=== PATIENT | male | born 1970 | race Caucasian/White ===

== ENCOUNTER 2016-10-18 10:34 | Emergency (ER) ==
[2016-10-18 12:07] LABS: URINE CULTURE NEEDED? NO; URINE MICRO REVIEW NEEDED? NO; URINE SOURCE CLEAN CATCH
[2016-10-18 12:15] LABS: BILIRUBIN URINE NEGATIVE (NEGATIVE); BLOOD URINE NEGATIVE (NEGATIVE); COLOR YELLOW; GLUCOSE URINE 300 mg/dL (NEGATIVE); LEUKOCYTES URINE NEGATIVE (NEGATIVE); NITRITE URINE NEGATIVE (NEGATIVE); PROTEIN URINE NEGATIVE (NEGATIVE); SP GRAVITY URINE 1.008; TURBIDITY URINE CLEAR (CLEAR); UR EPITHELIAL CELLS <10 /HPF (<10); URINE BACTERIA NEGATIVE /HPF; URINE RBC <10 /HPF (<10); URINE WBC <10 /HPF (<10); UROBILINOGEN URINE NORMAL (NORMAL)
[2016-10-18 12:35] LABS: UR AMPHETAMINES QUAL PRESUMPTIVE POSITIVE (NONE DETECT); UR BARBITUATES QUAL NONE DETECTED (NONE DETECT); UR BENZODIAZEPIN QUAL NONE DETECTED (NONE DETECT); UR CANNABINOIDS QUAL PRESUMPTIVE POSITIVE (NONE DETECT); UR COCAINE QUAL NONE DETECTED (NONE DETECT); UR METHADONE QUAL NONE DETECTED (NONE DETECT); UR OPIATES QUAL PRESUMPTIVE POSITIVE (NONE DETECT); UR OXYCODONE QUAL NONE DETECTED (NONE DETECT); UR PCP QUAL NONE DETECTED (NONE DETECT)
--- NOTE | 2016-10-18 13:28 | PROVIDER DOCUMENTATION ---
HPI-Psychological Disorder - General Source: patient - History of Present Illness-Psych Onset/Duration: reports: unsure Timing: reports: still present, constant Severity: reports: mild Situational problems related to:: reports: N/A Psychiatric Complaints: reports: depressed. denies: homicidal thoughts, ingestion, insomnia, irritability, , rapid pulse, suicidal ideation Substance Use: reports: opiates Previous psych related hospitalizations?: Yes Patient arrived by:: private car Similar Symptoms Previously?: Yes Recently seen or treated by another doctor?: Yes <Med Grigsby - Last Filed: 10/18/16 17:53> <Vishal Norman - Last Filed: 10/18/16 20:45> <Rosaura Arora - Last Filed: 10/18/16 20:51> - General Chief Complaint: Psych Stated Complaint: NEED EVAL/RT SHOULDER PAIN Time Seen by Provider: 10/18/16 13:23 Allergies/Adverse Reactions: Patient Allergies Allergy/AdvReac Type Severity Reaction Status Date / Time amoxicillin trihydrate * Allergy Unknown Verified 10/18/16 13:47 [From Augmentin] potassium clavulanate * Allergy Unknown Verified 10/18/16 13:47 [From Augmentin] Home Medications: Home Medication List Medication Instructions Recorded Confirmed Last Taken Type Aspirin [Aspir-Low] 81 mg PO DAILY 10/18/16 10/18/16 10/16/16 02:00 History Atorvastatin Calcium [Lipitor] 40 mg PO DAILY 10/18/16 10/18/16 10/16/16 02:00 History Duloxetine [Cymbalta] 60 mg PO BID 10/18/16 10/18/16 10/16/16 02:00 History Gabapentin 300 mg PO TID 10/18/16 10/18/16 Unknown History Haloperidol [Haldol] 5 mg PO BID 10/18/16 10/18/16 10/16/16 02:00 History Metformin E.r. [Glucophage Xr] 500 mg PO BID CC 10/18/16 10/18/16 10/16/16 02: 00 History Morphine Sulfate [Morphine Sulfate 60 mg PO BID 10/18/16 10/18/16 Unknown History ER] Olanzapine 15 mg PO DAILY 10/18/16 10/18/16 10/16/16 02:00 History Pantoprazole [Protonix] 40 mg PO DAILY@0700 10/18/16 10/18/16 Unknown History Trazodone [Desyrel] 300 mg PO QHS 10/18/16 10/18/16 10/16/16 02:00 History Ziprasidone [Geodon] 80 mg PO BID 10/18/16 10/18/16 10/16/16 02:00 History - History of Present Illness-Psych Nature of Presenting Problem: patient is a 45 y/o M that presents to the ER with needing evaluation for Hernández. patient has long standing history of chronic pain medication use and abuse. Was seen at [place] [facility] yesterday for possible overdose of Morphine. patient denies SI or HI thoughts. patient wants help (Med Grigsby) Review of Systems - Adult - REVIEW OF SYSTEMS - ADULT Constitutional: denies: chills, fever Eyes: reports: no symptoms reported Ears, Nose, Mouth & Throat: denies: ear pain, epistaxis, sinus problem, throat pain, throat swelling Cardiovascular: denies: chest pain, palpitations Respiratory: denies: cough, shortness of breath, wheezing Gastrointestinal: denies: abdominal pain, diarrhea, nausea, vomiting Genitourinary: reports: no symptoms reported Musculoskeletal: reports: bone pain, back pain, joint pain. denies: neck pain Integumentary: reports: no symptoms reported Neurological: reports: no symptoms reported Psychiatric: reports: depression. denies: anxiety, emotional problems, panic attacks, suicidal thoughts Endocrine: reports: no symptoms reported Hematologic/Lymphatic: reports: no symptoms reported Allergic/Immunologic: reports: no symptoms reported All Other Systems: Reviewed and Negative <Med Grigsby - Last Filed: 10/18/16 17:53> Past History - Adult - PAST MEDICAL HISTORY-ADULT Review of Records: reports: Old Records Reviewed, Nursing Assessment Review, Medications Reviewed Musculoskeletal: reports: chronic pain Psychiatric: reports: bipolar, depression, psychiatric problems, schizophrenia - PRIOR SURGERIES/PROCEDURES Surgical/Procedure History: reports: reviewed, not pertinent - IMMUNIZATION STATUS Childhood Immunizations: See Nurse Assessment Flu Vaccine: See Nurse Assessment - FAMILY HISTORY Family History: reviewed, not pertinent - SOCIAL HISTORY Living Situation: family <Med Grigsby - Last Filed: 10/18/16 17:53> Physical Exam-Psych Focus - Physical Exam-Psych Initial Vital Signs Reviewed: Yes Appearance: appropriate appearance, appropriate insight, no apparent distress, no memory impairment, alert Neurological: alert, calm, oriented x 3 Behavior/Eye Contact/Speech: cooperative, good eye contact, normal speech Thoughts/Hallucinations: normal thought pattern, no apparent hallucination HENMT: normocephalic/atraumatic, moist mucous membranes, normal ENT inspection Neck: non-tender, full range of motion, normal inspection Respiratory: lungs clear, normal breath sounds, no respiratory distress, no accessory muscle use Cardiovascular: no edema, no murmur, tachycardia Abdominal Exam: normal bowel sounds, non tender, soft Extremity: normal range of motion, normal inspection, no pedal edema Integumentary: normal color, warm/dry <Med Grigsby - Last Filed: 10/18/16 17:53> Progress - REASSESSMENT Reassessment #1 Time Reassessed: 17:44 Status: other Reassessment Comment: awaiting results from psych consult - PSYCHIATRIC Medically clear for psych eval and/or transfer to [facility] Yes (patient is medically cleared for [facility] consult) - XRAY 1 XRAY Study: Chest Impression: Normal XRAY Interpretation: negative - CHANGE OF SHIFT REPORT (ED Provider) Report Given and Care Transferred to:: Time of Transfer: 18:00 Items Pending: Other (psych consult, then [facility] consult) Tentative Impression of Patient: polysubstance abuse <Med Grigsby - Last Filed: 10/18/16 17:53> <Vishal Norman - Last Filed: 10/18/16 20:45> <Rosaura Arora - Last Filed: 10/18/16 20:51> - PLAN OF CARE/RESULTS Progress/Plan/Lab Results: plan of care-labs and hernández evaluation edgar contacted, patient needs psych evaluation 1628-[facility] consulting on patient (Med Grigsby) 1840: Tamara from [facility] here to consult with pt. 2039: Pt does not want in patient treatment with Hernández. PT would like to detox at home himself. Pt has Edgar's contact information. Per Tamara at [facility], pt is ready to be discharged home. Laboratory Tests 10/18/16 10/18/16 10/18/16 11:57 11:57 13:22 WBC RBC Hgb Hct MCV MCH MCHC RDW Std Deviation Plt Count MPV Immature Gran % (Auto) Neut % (Auto) Lymph % (Auto) [place] % (Auto) Eos % (Auto) Baso % (Auto) Immature Gran # (Auto) Neut # (Auto) Lymph # (Auto) [place] # (Auto) Eos # (Auto) Baso # (Auto) Sodium Potassium Chloride Carbon Dioxide Anion Gap BUN Creatinine Estimated GFR/1.73 m2 BUN/Creatinine Ratio Glucose Calculated Osmolality Calcium Total Bilirubin AST ALT Alkaline Phosphatase Total Protein Albumin Globulin Albumin/Globulin Ratio Vitamin B12 TSH Free T4 Urine Source CLEAN CATCH Urine Color YELLOW Urine Turbidity CLEAR Urine pH 6.0 Ur Specific [place] 1.008 Urine Protein NEGATIVE Ur Glucose (Stick) 300 A Ur Ketones (Stick) NEGATIVE Urine Blood NEGATIVE Urine Nitrite NEGATIVE Urine Bilirubin NEGATIVE Urobilinogen Dipstick NORMAL Urine Leukocytes NEGATIVE Urine WBC (Auto) <10 Urine RBC (Auto) <10 U Epithel Cells (Auto) <10 Urine Bacteria (Auto) NEGATIVE Salicylates Urine Opiates Screen PRESUMPTIVE POSITIVE A Ur Oxycodone Screen NONE DETECTED Ur Methadone, Qual NONE DETECTED Acetaminophen Ur Barbiturates Screen NONE DETECTED Ur Phencyclidine Scrn NONE DETECTED Ur Amphetamines Screen PRESUMPTIVE POSITIVE A U Benzodiazepines Scrn NONE DETECTED Urine Cocaine Screen NONE DETECTED U Cannabinoids Screen PRESUMPTIVE POSITIVE A Plasma/Serum Ethyl Alc 10/18/16 10/18/16 10/18/16 13:22 13:22 14:16 WBC 6.76 RBC 4.60 L Hgb 13.6 L Hct 38.7 L MCV 84.1 MCH 29.6 MCHC 35.1 RDW Std Deviation 13.3 Plt Count 290 MPV 10.8 H Immature Gran % (Auto) 0.4 Neut % (Auto) 65.9 Lymph % (Auto) 19.4 L [place] % (Auto) 11.8 H Eos % (Auto) 2.1 Baso % (Auto) 0.4 Immature Gran # (Auto) 0.03 Neut # (Auto) 4.45 Lymph # (Auto) 1.31 [place] # (Auto) 0.80 H Eos # (Auto) 0.14 Baso # (Auto) 0.03 Sodium 128 L Potassium 5.1 Chloride 93 L Carbon Dioxide 23 L Anion Gap 12 BUN 13 Creatinine 0.8 Estimated GFR/1.73 m2 > 60 BUN/Creatinine Ratio 16 Glucose 233 H Calculated Osmolality 265 Calcium 9.5 Total Bilirubin 0.34 AST 30 ALT 26 Alkaline Phosphatase 82 Total Protein 7.4 Albumin 3.8 Globulin 3.6 Albumin/Globulin Ratio 1.1 Vitamin B12 377 TSH 3.12 Free T4 1.34 Urine Source Urine Color Urine Turbidity Urine pH Ur Specific [place] Urine Protein Ur Glucose (Stick) Ur Ketones (Stick) Urine Blood Urine Nitrite Urine Bilirubin Urobilinogen Dipstick Urine Leukocytes Urine WBC (Auto) Urine RBC (Auto) U Epithel Cells (Auto) Urine Bacteria (Auto) Salicylates < 3.00 L Urine Opiates Screen Ur Oxycodone Screen Ur Methadone, Qual Acetaminophen < 1.2 L Ur Barbiturates Screen Ur Phencyclidine Scrn Ur Amphetamines Screen U Benzodiazepines Scrn Urine Cocaine Screen U Cannabinoids Screen Plasma/Serum Ethyl Alc Orders Category Date Time Status Regular Diet Diet 10/18/16 18:13 Active SHOULDER-RIGHT [RAD] Stat Exams 10/18/16 10:55 Draft ACETAMINOPHEN [TDM] Stat Lab 10/18/16 13:22 Completed ALCOHOL BLOOD Stat Lab 10/18/16 13:22 Completed CBC WITH ELECTRONIC DIFF [HEME] Stat Lab 10/18/16 14:16 Completed COMPREHENSIVE METABOLIC PANEL [CHEM] Stat Lab 10/18/16 13:22 Completed FREE T4 Stat Lab 10/18/16 13:22 Completed SALICYLATES [TDM] Stat Lab 10/18/16 13:22 Completed TSH Stat Lab 10/18/16 13:22 Completed URINALYSIS W/POSS RFLX CULT [URINALYSIS] Stat Lab 10/18/16 11:57 Completed URINE DRUG SCREEN Stat Lab 10/18/16 11:57 Completed VITAMIN B12 Stat Lab 10/18/16 13:22 Completed Vital Signs - 24 hr 10/18/16 10/18/16 10/18/16 10:45 13:37 17:01 Temperature 98.5 F Pulse Rate 109 H 96 H 92 H Respiratory 20 20 14 Rate Blood Pressure 126/75 122/85 132/78 O2 Sat by Pulse 100 99 98 Oximetry 10/18/16 19:40 Temperature 98.9 F Pulse Rate 90 Respiratory 20 Rate Blood Pressure 135/83 O2 Sat by Pulse 98 Oximetry Pt given results and will be d/c home w/o rx to follow up with PCP. Pt verbally understood instructions. PT remained clinically stable throughout the course of the ED stay and will return if symptoms worsen. (Rosaura Arora) Departure <Med Grigsby - Last Filed: 10/18/16 17:53> - Departure Time of Disposition Order: 20:45 Certified Medical Emergency: Emergent <James Normans M - Last Filed: 10/18/16 20:45> <Rosaura Arora - Last Filed: 10/18/16 20:51> - Departure DIAGNOSIS: Opioid abuse Disposition: HOME 01 Condition: Stable Additional Instructions: ED Follow Up Instructions: You have been treated by a care provider in the Emergency Department. These instructions are being provided to you so you can have an understanding of how to care for yourself upon discharge. Upon discharge from the Emergency Department, you are responsible for making arrangements for follow-up care by a physician of your choice. Take all prescribed medications as directed. Return to the Emergency Department immediately for any new or worsening symptoms. You may call the Physician Referral phone number at [phone] to obtain a list of Physicians who are taking new patients. Referrals: None,PCP [Primary Care Provider] - Instructions: Opioid Use Disorder Attestation - Scribe Verification/Attestation Scribe:: Med Grigsby Acting as Scribe for:: Andres Bernal Scribe documention review:: This chart was documented by a scribe and accurately reflects the service the provider performed and the decisions made by the provider. <Med Grigsby - Last Filed: 10/18/16 17:53> - Scribe Verification/Attestation #2 Shift Change Time: 18:00 Scribe Name: Rosaura Arora Acting as Scribe for:: Vishal Norman <Rosaura Arora - Last Filed: 10/18/16 20:51> Physician Attestation - Physician Attestation I, the provider, attest to the following statement:: Andres Bernal Physician documentation Attestation:: This documentation recorded by the scribe accurately reflects the service I personally performed and the decisions made by me. <Med Grigsby - Last Filed: 10/18/16 17:53>
[2016-10-18 14:27] LABS: ACETAMINOPHEN < 1.2 ug/mL (10-30); AGAP 12; ALBUMIN 3.8 g/dL (3.5-5.0); ALKALINE PHOSPHATASE 82 U/L (32-122); BUN 13 mg/dL (8-22); CALCIUM 9.5 mg/dL (8.8-10.2); CHLORIDE 93 mmol/L (98-107); COSMO 265; GOT 30 U/L (10-34); GPT 26 U/L (10-44); POTASSIUM 5.1 mmol/L (3.5-5.1); SODIUM 128 mmol/L (136-145); TCO2 23 mmol/L (25-35); TOTAL BILIRUBIN 0.34 mg/dL (0.20-1.00); TOTAL PROTEIN 7.4 g/dL (6.3-8.3)
[2016-10-18 14:45] LABS: FREE T4 1.34 ng/dL (0.93-1.70)
[2016-10-18 14:58] LABS: MANUAL DIFF NEEDED? NO
[2016-10-18 15:03] LABS: BASO% 0.4 % (0.0-0.8); EOS# 0.14 X1000 (0.0-0.7); EOS% 2.1 % (0.0-10.0); HEMATOCRIT 38.7 % (42.0-52.0); HEMOGLOBIN 13.6 g/dL (14.0-18.0); IMM GRAN# 0.03 X1000 (0.0-0.04); IMM GRAN% 0.4 % (0.0-0.5); LYMPH# 1.31 X1000 (1.2-3.4); LYMPH% 19.4 % (20.5-51.1); MCH 29.6 PG (27-31); MCHC 35.1 g/dL (33-37); MCV 84.1 FL (81-99); MONO% 11.8 % (1.7-9.3); MPV 10.8 FL (7.4-10.4); NEUT% 65.9 % (42.2-75.2); PLT 290 X1000 (130-400)
--- NOTE | 2016-10-18 15:27 | Diag Imaging Result Document ---
PROCEDURE NAME: SHOULDER-RIGHT - 10/18/2016 RIGHT SHOULDER, 3 VIEWS: COMPARISON: None. FINDINGS: Bones are intact and normally aligned. Joint spaces and soft tissues are clear. IMPRESSION: Negative exam.
[2016-10-18 20:58] VITALS: BP 142/76
== END 2016-10-18 20:59 | disposition home or self-care (01) ==
LOC: ED 10:34
DX: F11.10 Opioid abuse, uncomplicated (principal); M25.511 Pain in right shoulder; M54.9 Dorsalgia, unspecified; G89.29 Other chronic pain; F32.9 Major depressive disorder, single episode, unspecified; F31.9 Bipolar disorder, unspecified; F20.9 Schizophrenia, unspecified; Z79.82 Long term (current) use of aspirin; Z79.899 Other long term (current) drug therapy
CPT/HCPCS: 80053; 81001; 82607; 84439; 84443; 85025; G0480; 80320; 80324; 80329; 80345; 80346; 80349; 80353; 80358; 80361; 80365; 83992